=== PATIENT | female | born 1995 | race Two or more races ===

== ENCOUNTER 2025-02-10 14:44 | Emergency (ER) | payer MEDICAID, SELFPAY ==
[2025-02-10 14:55] VITALS: BP 101/70; PULSE 68; RESP 18; TEMP 36.7; O2SAT 99
--- NOTE | 2025-02-10 14:57 | XR_ITS ---
Examination: Toes, right foot 3 views, first digit Technique: Toes AP oblique lateral 3 views Date and time of exam: February 10, 2025 at 1518 hrs. Indications: Patient kicked a metal object today with injury to the foot, toe pain Findings: No acute fracture No dislocation No opaque foreign body Impression: No acute fracture
--- NOTE | 2025-02-10 14:57 | EDNOTE_ITS ---
<Statement entered by Stacy Ruiz MD - 02/10/25 17:35> As co-signing physician, I was present and available for consult prn. I concur with the plan and care as documented by the midlevel provider. ED General RME/HPI General Chief complaint: Ankle/Foot Injury Stated complaint: RIGHT FOOT INJURY Time Seen by Provider: 02/10/25 14:48 Arrival date/time: 02/10/25 14:44 CC: Right great toe pain HPI patient struck a board with her foot in the garage, causing immediate pain. Onset approximately 2 hours ago. Patient denies any other pain in any other toes. No other complaints. Related Data Home Medications ?Medication ?Instructions ?Recorded ?Confirmed Vitamin * 1 tab PO QDAY #0 tabs 06/01/23 Allergies Allergy/AdvReac Type Severity Reaction Status Date / Time No Known Allergies Allergy Verified 06/07/24 14:04 Review of Systems Review of Systems Systems Reviewed: All systems reviewed, normal except as documented Narrative Review of Systems: Right toe pain Past Medical History Past Medical History NEUROLOGIC: Negative Neurological Disorders or Seizures CARDIAC: Negative Cardiac Disorders or Congestive Heart Failure RESPIRATORY: Negative Chronic Obstructive Pulmonary Disease (COPD) or Asthma GASTROINTESTINAL: Negative Gastrointestinal Disorders, Hepatitis or Colorectal Cancer GENITOURINARY: Negative Genitourinary Disorders, Renal Disease or Prostate Cancer REPRODUCTIVE: Positive Previous Pregnancies; Negative Breast Cancer, Endometriosis, Genital Herpes, Gonorrhea, Pelvic Inflammatory Disease, Syphilis, Testicular Cancer or Uterine Prolapse MUSCULOSKELETAL: Negative Musculoskeletal Disorders, Bone Cancer, Scoliosis or Carpal Tunnel Syndrome ENT: Negative Cataracts ENDOCRINE: Negative Endocrine Disorders, Diabetes Mellitus Type 1 or Diabetes Mellitus Type 2 HEMATOLOGIC: Negative Blood Disorders or Anemia PSYCHO/SOCIAL: Negative Depression, Anxiety or Depression OTHER HISTORY: Negative Hospitalization, Autoimmune Disease, Down Syndrome, Developmental Delay, Shingles, Falls, Blood Transfusions, Blood Transfusion Reaction, Anesthesia Reactions, Organ Transplant, Chemotherapy, Radiation Therapy, Hyperbaric Therapy, MRSA, VRSA, Vancomycin-Resistant Enterococci, Human Immunodeficiency Virus (HIV), Chicken Pox, Measles, Mumps, Rubella ([place] Measles), Pertussis, Clostridium Difficile, Cancer, Breast Cancer, Cervical Cancer, Colorectal Cancer, Lung Cancer, Ovarian Cancer, Prostate Cancer or Testicular Cancer Family History FAMILY HISTORY: Positive Family Cardiac Disorders (MOTHER AND FATHER HYPERTENSION) and Family Cancer (MATERNAL GRANDFATHER BONE CANCER); Negative Family Psychiatric Problems, Family Respiratory Disorders, Family Gastrointestinal Problems, Family Surgery or Family Anesthesia Reaction Surgical History SURGICAL: Negative Cardiac Surgery, Endocrine Surgery, Thyroidectomy, Ear Surgery, Tympanostomy Tube, Eye Surgery, Nose Surgery, Oral Surgery, Tonsillectomy, Adenoidectomy, Cochlear Implant, Corneal Transplant, Throat Surgery, Abdominal Surgery, Tracheostomy, Gastric Bypass Surgery, Gastrostomy, Bowel Surgery, Nephrectomy, Transurethral Resection, Joint Replacement, Amputation, Open Reduction Internal Fixation, Arthroscopy, Neurologic Surgery, Brain Shunt, Mastectomy, Lumpectomy, Hysterectomy, Tubal Ligation, Section or Organ Transplant Social History SMOKING STATUS: Never smoker SECOND HAND EXPOSURE: No ED Exam Narrative Physical exam: [General: Not in any acute distress Head normocephalic HEENT: Within acceptable limits Neck is supple nontender Chest equal chest rise nontender to palpation Skin: Intact no petechiae rash induration ulceration or crepitus Extremities: Right foot, first great toe decreased range of motion secondary to pain cap refill less than 2 seconds mild ecchymosis no significant edema. Moving all other digits without complications. Moving all other extremities against resistance cap refill less than 2 seconds neurosensory intact Neuro: Awake alert oriented x3 Glascow coma 15 no focal deficits] Course Quality Measures none Orders Category Date Time Status XR toe RT min 2V Stat Exams 02/10/25 14:57 Taken Vital Signs Vital signs: Vital Signs Temperature 98.1 F 02/10/25 14:55 Pulse Rate 68 02/10/25 14:55 Respiratory Rate 18 02/10/25 14:55 Blood Pressure 101/70 02/10/25 14:55 Pulse Oximetry (%) 99 02/10/25 14:55 Oxygen Delivery Method Room Air 02/10/25 14:55 [facility] Patient data External records reviewed:: [facility] previous records Clinical information provided by:: patient Social determinants that could affect healthcare access:: none Patient has the following chronic illnesses:: None How is presenting disease/condition affected by chronic disease/condition?: uneffected by Evaluation data The following diagnostics were reviewed and interpreted by me:: radiology exam(s) Lab and/or radiology exams considered but not ordered:: X-ray of the great toe shows no acute fracture malalignment or dislocation. Interpretation Summary: Toe contusion Medications Medications considered but not ordered:: None Medication administrations:: None Consultations Consultation(s) initiated? (list below): No Diagnosis Differential Diagnosis ED Complaint MDM: Toe fracture toe contusion toe dislocation Most likely diagnosis given after review of the tests above:: Toe contusion Admission Indicated Admission indicated?: not indicated Explain why admission is indicated or not indicated:: Stable for discharge Admission Request Was there a request for admission?: No Disposition Plan Disposition Plan: Discharge Discharge Attestation Discharge Attestation: The patient and all family members were given an opportunity to ask questions and understood the discharge instructions. Discharge instructions specifically effects, indications for sooner follow up or return to the emergency department, and the expected course of current diagnosis. Patient condition: Stable Medical Decision Making Differential Diagnosis Differential Diagnosis: Toe fracture toe contusion toe dislocation Discharge Plan Plan Patient Disposition: HOME (Self Care) Patient condition on transfer: Stable Prescriptions/Referrals Prescriptions/Med Rec: No Action Vitamin * 1 EACH tablet 1 tab PO QDAY Qty: 0 Problem List Clinical Impression: Contusion of great toe of right foot Patient/Caregiver Discharge Instructions Education Materials: Bone Contusion Print Language: Citizen Of [place] Stand Alone Forms: Becca Award Info., Work/School Release, Patient Portal Info Letter PA/COMPOSITION INSTRUCTOR Supervising Physician PA/COMPOSITION INSTRUCTOR Supervising Physician: Juan Bell ENP
== END 2025-02-10 16:20 | disposition home or self-care (01) ==
LOC: SERX 15:53
PROVIDERS: Emergency Provider Emergency Medicine
DX: S90.119A Contusion of unspecified great toe without damage to nail, initial encounter (principal); W22.8XXA Striking against or struck by other objects, initial encounter
CPT/HCPCS: 73660; 99283